=== PATIENT | female | born 1960 | race Caucasian/White ===

== ENCOUNTER 2017-01-22 10:06 | Observation (INO) | payer BC ==
--- NOTE | ~2017-01-22 | HP ---
History And Physical [place] [id number] [facility] [place] [address] NAME: CHRISTAL PINZON : 58 STATUS : ADM Noe PAT#: [id number] AGE: 56 ADM/REG DATE : 01/22/17 MR#: [id number] REPORT SERV DATE: 01/22/17 DICTATED BY: NAIMA AVILA DATE: 01/22/17 REPORT STATUS : Draft TRANSCRIBED BY: YARIEL DATE: 01/22/17 DATE OF ADMISSION: 01/22/2017 CHIEF COMPLAINT: Chest pain. HISTORY OF PRESENT ILLNESS: This is a very pleasant, 56-year-old female with a history of non-ST elevation MS in 2008 followed by cardiac catheterization, which showed no obstructive coronary artery disease. She also has a cardiovascular risk factors of hyperlipidemia and borderline hypertension as well as family history for coronary artery disease. She states onset of midsternal chest "pressure" around 7 o'clock this morning occurring at rest. There was radiation to the right neck and jaw and it was accompanied with shortness of breath and nausea. She took her blood pressure and it was 167/97, and she also felt her heart was racing and the monitor showed a heart rate of 120s. The chest pain lasted for approximately 20-30 minutes and resolved and then it returned. She called her son and took two aspirin, and her son drove her to the emergency department. Her symptoms seem to be relieved after application of nitroglycerin paste, IV morphine, as well as some Pepcid and Carafate. The patient recently went to [employer] and walked around without any significant chest pain. She does mention over the last few months having increased shortness of breath while going up a set of stairs at home. She is also suffering some cold symptoms currently with sinus congestion and white colored sputum. No recent fever or chills, although she does report a fever approximately 10 days ago when she was diagnosed with strep throat and completed azithromycin for five days. She also mentions some right knee pain, although she ambulated through the [employer] without too much trouble. The patient denies personal history for CVA, DVT, or PE. Denies any lower extremity edema or calf tenderness. No other episodes of palpitations, PND, or orthopnea. MEDICAL HISTORY: 1. Non ST-elevation MS in 2008 with cardiac catheterization on 06/01/2009, showing no significant coronary artery disease, nuclear stress test in 2012 achieved a Cesario stage 3, which is a low risk stress test. 2. Mixed hyperlipidemia. 3. Seasonal allergies. 4. Migraines. SURGICAL HISTORY: Appendectomy and hysterectomy. HOME MEDICATIONS: Tylenol 500-1000 mg t.i.d. p.r.n. pain, Excedrin one-two tabs t.i.d. p.r.n. headache, Delsym liquid 60 mg b.i.d. p.r.n. cough, Claritin 10 mg daily p.r.n. seasonal allergies, pravastatin 20 mg at bedtime, Advil Cold 1 cap b.i.d. p.r.n. ALLERGIES: NO KNOWN DRUG ALLERGIES. 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 He is at bedside. She has never smoked. Denies alcohol use. History And Physical [address] [address] NAME: CHRISTAL PINZON : 58 STATUS : ADM Noe PAT#: [id number] AGE: 56 ADM/REG DATE : 01/22/17 MR#: [id number] REPORT SERV DATE: 01/22/17 DICTATED BY: NAIMA AVILA DATE: 01/22/17 REPORT STATUS : Draft TRANSCRIBED BY: YARIEL DATE: 01/22/17 She works at the computer at work, and does not have regular exercise program. Admits to recent weight gain secondary to sedentary lifestyle. FAMILY HISTORY: Mother had an MS at age 60 and at age 65 from heart failure. REVIEW OF SYSTEMS: The patient also reports she had been started on Cozaar by her primary care physician for some elevated blood pressures, but when she takes her blood pressures at home, this is typically 120 systolic and she has not continued this medicine at home. All other review of systems negative except as indicated above. PHYSICAL EXAMINATION: VITAL SIGNS: Blood pressure 155/66, heart rate 87, temperature 97.6, pulse oximetry 97% on room air, respirations 16. GENERAL: Well developed, well nourished, in no acute distress. HEENT: Anicteric. Normal EOM. Head normocephalic. PERRLA, no xanthelasma. NECK: Supple. No JVD. Carotids normal without bruits. LUNGS: Clear to auscultation bilaterally anterior and posterior. Respirations even and unlabored. CARDIAC: S1, S2 regular rate and rhythm. No murmurs, rubs, or gallops. No chest wall tenderness. ABDOMEN: Normal bowel sounds. Soft and nontender to palpation. No masses or organomegaly. EXTREMITIES: No peripheral edema. DP/PT and radial pulses palpable bilaterally. No clubbing or cyanosis. SKIN: Warm and dry. Normal turgor. No pallor or cyanosis. MUSCULOSKELETAL: Moving all extremities x4. Normal muscle strength. NEURO/PSYCH: Alert and oriented with appropriate affect. LABORATORY DATA: Sodium 141, potassium 3.4, BUN 10, creatinine 0.8. White blood count 5.2, hemoglobin 14.4, hematocrit 42.8. Troponin less than 0.02. Chest x-ray shows no acute cardiopulmonary processes. EKG interpreted by myself indicates normal sinus rhythm with no ischemia. ASSESSMENT/PLAN: 1. Substernal chest pain in this 56-year-old female with cardiovascular risk factors of hyperlipidemia and family history as well as some probable hypertension. History of a negative cardiac catheterization in 2008 following a questionable non-ST elevation MS. Plan at this time is just to check a second troponin around 1:30 p.m. The patient has been n.p.o. today. If her troponin is unchanged, we will consider sending for stress testing today if we are able. Otherwise, she will stay overnight for stress testing in the morning. If stress testing is low risk, we will plan to discharge her home and follow up with her primary care physician within the next one to two weeks. If any indication of ischemia on nuclear stress test, we will plan to consult Cardiology for probable cardiac catheterization. 2. Mixed hyperlipidemia, on statin therapy. We will continue home medicine. 3. Hypertension. We will continue to monitor this while she is here and instructed her to take her Cozaar if her blood pressure remains elevated. History And Physical [address] [address] NAME: CHRISTAL PINZON : 58 STATUS : ADM Noe PAT#: [id number] AGE: 56 ADM/REG DATE : 01/22/17 MR#: [id number] REPORT SERV DATE: 01/22/17 DICTATED BY: NAIMA AVILA DATE: 01/22/17 REPORT STATUS : Draft TRANSCRIBED BY: MODNora DATE: 01/22/17 4. Obesity. I have instructed the patient to increase exercise in her lifestyle. DBT/ANAL Naima Avila NP / [id number] CC: Mariama Land, MSN, DIRECTOR OF MEDICARE-BC Isaias Urena M.D.
[2017-01-22 09:49] LABS: BASOPHILS 0.6 %; BASOPHILS ABSOLUTE 0.03 10/3/uL (0.0-0.16); EOSINOPHILS 2.1 %; EOSINOPHILS ABSOLUTE 0.11 10/3/uL (0.0-0.53); ER CBC TAT 0 Hrs 12 Mins; HEMATOCRIT 42.8 % (36.0-48.0); HEMOGLOBIN 14.4 g/dL (12.0-16.0); IMMATURE GRANULOCYTES 0.2 %; IMMATURE GRANULOCYTES ABSOLUTE 0.01 10/3/uL (0.0-0.11); LYMPHOCYTES 30.9 %; MANUAL DIFF NO %; MEAN CORPUS HGB CONC 33.6 g/dL (32.0-36.0); MEAN CORPUSCULAR HEMOGLOB 30.4 pg (26.0-34.0); MEAN CORPUSCULAR VOLUME 90.5 fL (80-100); MEAN PLATELET VOLUME 10.7 fL (9.2-13.0); MONOCYTES 7.4 %; MONOCYTES ABSOLUTE 0.38 10/3/uL (0.21-1.20); NEUTROPHILS 58.8 %; NEUTROPHILS ABSOLUTE 3.04 10/3/uL (2.02-8.40); PLATELET COUNT 242 10/3/uL (150-400); RED CELL COUNT 4.73 10/6/uL (4.0-5.6); WHITE BLOOD CELLS 5.2 10/3/uL (4.5-10.5)
[2017-01-22 09:58] LABS: PARTIAL THROMBO TIME 30.3 SEC (22.5-37.2)
[2017-01-22 10:06] LABS: BUN (BLOOD UREA NITROGEN) 10 MG/DL (6-23); CALCIUM, SERUM 8.8 MG/DL (8.5-10.4); CHEST PAIN PROFILE TAT 0 Hrs 29 Mins; CHLORIDE, SERUM 107 MMOL/L (96-112); CO2 (CARBON DIOXIDE) 25 MMOL/L (24-34); GFR AFRICAN AMERICAN 95 ML/MIN (>=60); GFR NON AFRICAN AMERICAN 82 ML/MIN (>=60); GLUCOSE, SERUM 108 MG/DL (60-99); POTASSIUM, SERUM 3.4 MMOL/L (3.5-5.3); SODIUM, SERUM 141 MMOL/L (135-148); TROPONIN I <0.02 NG/ML (<0.05)
[~2017-01-22 10:06] MED LIST: ESTRADIOL; VIVELLE SY0.1 MG/24 TOP; [UNRECOGNIZED DRUG - REMARK]
[2017-01-22 11:14] LABS: ALBUMIN 3.6 G/DL (3.5-5.0); SGOT(AST) 14 U/L (5-40); SGPT(ALT) 18 U/L (5-65); TOTAL BILIRUBIN 0.5 MG/DL (0-1.2); TOTAL PROTEIN 7.2 G/DL (6.0-8.5)
[2017-01-22 11:15] LABS: ALKALINE PHOSPHATASE 95 U/L (45-117); DIRECT BILIRUBIN < 0.1 MG/DL (0.0-0.4); INDIRECT BILIRUBIN(NOT ORDER) 0.4 MG/DL (0.1-0.9)
[2017-01-22] MEDS ORDERED: PRAVAC PO (11:48)
[2017-01-22] MEDS ORDERED: ADVIL COLD1 PO (11:49)
[2017-01-22] MEDS ORDERED: DELSYM30 MG/5 ML PO (11:50)
[2017-01-22] MEDS ORDERED: EXCEDRIN EXTRA1 EACH PO (11:51)
[2017-01-22] MEDS ORDERED: ACET500CAP PO (11:51)
[2017-01-22] MEDS ORDERED: CLARIT10 PO (11:52)
== END 2017-01-22 16:54 | disposition home or self-care (01) ==
LOC: ER 10:06 → CDU1 12:24
PROVIDERS: Emergency Medicine
DX: I25.2 Old myocardial infarction (principal); R07.2 Precordial pain; E78.2 Mixed hyperlipidemia; G43.909 Migraine, unspecified, not intractable, without status migrainosus; Z90.49 Acquired absence of other specified parts of digestive tract; Z90.710 Acquired absence of both cervix and uterus; Z79.899 Other long term (current) drug therapy; E66.9 Obesity, unspecified
CPT/HCPCS: 71010; 78452; 80048; 80076; 83690; 83735; 84484; 85025; 85610; 85730; 93005; 93017; 96374; 96375; 99285; A9270-GY; A9502; G0378; J2405